=== PATIENT | female | born 1950 | race Native Hawaiian/Other Pacific Islander ===

== ENCOUNTER 2020-05-28 14:47 | Inpatient (IN) | payer BC ==
[~2020-05-28] VITALS: Ht 154.9 cm; Wt 64.5 kg
[2020-05-28 16:31] LABS: Basophils # (auto) 0 10 ^3/uL (0-0.2); Basophils % (auto) 0.4 % (0.0-2.0); Eosinophils # (auto) 0 10 ^3/uL (0-0.8); Eosinophils % (auto) 0.2 % (0.0-7.0); Hematocrit 36.4 % (36.0-46.0); Hemoglobin 12.7 g/dL (12.2-16.2); Lymphocytes # (auto) 0.7 10 ^3/uL (0.4-5.4); Lymphocytes % (auto) 10.3 % (10.0-50.0); Mean Corpuscular Hemoglobin 32.4 pg (28.0-32.0); Mean Corpuscular Hgb Conc. 34.8 g/dL (32.0-36.0); Mean Corpuscular Volume 93.1 fL (80.0-100.0); Monocytes # (auto) 0.3 10 ^3/uL (0-1.3); Monocytes % (auto) 4.9 % (0.0-12.0); Neutrophils # (auto) 5.7 10 ^3/uL (1.6-8.6); Neutrophils % (auto) 84.2 % (37.0-80.0); Nucleated Red Blood Cells % 0.1 %; Platelet Count (auto) 273 10^3/uL (140-450); Red Blood Cells 3.91 10^6/uL (4.0-5.20); Red Cell Distribution Width 11.9 % (11.8-14.3); White Blood Cell 6.8 10^3/uL (4.4-10.8)
[2020-05-28 16:46] LABS: Alanine Aminotransferase 34 U/L (13-56); Anion Gap 6 (5-15); Aspartate Aminotransferase 46 U/L (15-37); Blood Urea Nitrogen 21 mg/dL (7-18); Calcium 8.3 mg/dL (8.5-10.1); Carbon Dioxide 26 mmol/L (21-32); Chloride 103 mmol/L (98-107); Potassium 3.6 mmol/L (3.5-5.1); Sodium 135 mmol/L (136-145)
[2020-05-28 16:52] LABS: Alkaline Phosphatase 66 U/L (45-117); BUN/Creatinine Ratio 20.4; Bilirubin, Total 0.5 mg/dL (0.2-1.0); GFR African American 68 mL/min; GFR Non-African American 56 mL/min; Total Protein 7.6 g/dL (6.4-8.2)
[2020-05-28 17:26] LABS: Glucose 49 mg/dL (74-106)
[2020-05-28] MEDS ORDERED: DOXYCYCLINE 100 MG TAB/CAP PO ONE (17:45)
[2020-05-28] MEDS ORDERED: methylPREDNISolone SOD SUCC 125 MG/2 ML VL IM ONE (17:45)
[2020-05-28] MEDS ORDERED: cefTRIAXone SOD 1,000 MG VL IM ONE (17:45)
[2020-05-28] MEDS ORDERED: IPRATROPIUM BROM 0.5 MG/2.5ML INH SOL NEB ONE (18:00)
[2020-05-28] MEDS ORDERED: ALBUTEROL SULF 2.5 MG/0.5ML(0.5%) NEB SOLN NEB ONE (18:00)
[2020-05-28] MEDS ORDERED: LIDOCAINE 1% HCL (LOCAL ANESTH.) INJ 20ML MDV ONE (20:28)
[2020-05-28] MEDS ORDERED: ACETAMINOPHEN 325 MG TAB PO ONE (20:30)
[2020-05-28] MEDS ORDERED: SODIUM CHLORIDE 0.9% 1,000 ML IV ONE (20:30)
[2020-05-28] MEDS ORDERED: VANCOMYCIN PER PHARMACY 0 MG IV SCH (21:00)
[2020-05-28] MEDS ORDERED: ENOXAPARIN SOD 60 MG/0.6 ML SYRINGE SC ONE (21:00)
[2020-05-28] MEDS ORDERED: NITROGLYCERIN 0.4 MG SL TAB SL PRN (21:00)
[2020-05-28] MEDS ORDERED: HYDROcodone-ACET 5/325MG TAB PO PRN (21:00)
[2020-05-28] MEDS ORDERED: ALUM & MAG HYDROX-SIMETH LIQ(MAALOX) 30 ML PO PRN (21:00)
[2020-05-28] MEDS ORDERED: LORazepam 0.5 MG TAB PO PRN (21:00)
[2020-05-28] MEDS ORDERED: ONDANSETRON HCL 4 MG/2 ML VIAL IV PRN (21:00)
[2020-05-28] MEDS ORDERED: REMDESIVIR PER PHARMACY IV SCH (21:00)
[2020-05-28] MEDS ORDERED: PIPERACILLIN-TAZOB 3.375GM 100 ML IV ONE (21:00)
[2020-05-28] MEDS ORDERED: DOCUSATE SOD 100 MG CAP PO PRN (21:00)
[2020-05-28] MEDS ORDERED: ACETAMINOPHEN 500 MG TAB PO PRN (21:00)
[2020-05-28] MEDS ORDERED: ACETAMINOPHEN 325 MG TAB PO PRN (21:00)
[2020-05-28] MEDS ORDERED: MORPHINE SULF INJ 2 MG/ML SYRINGE 1ML IV PRN ×2 (21:00)
[2020-05-28 21:20] LABS: Magnesium 2.2 mg/dL (1.6-2.6)
[2020-05-28] MEDS: BUDESONIDE (INHALATION) 180 MCG IH IN SCH (22:00)
[2020-05-28] MEDS: ALBUTEROL SULF HFA 90MCG INH 200DOSE IN SCH (22:00)
[2020-05-28] MEDS: SODIUM CHLOR 0.9% PF (SALINE LOCK) 10ML VIAL/SYR IV SCH (22:39)
[2020-05-28] MEDS ORDERED: DEXTROSE (50%) 50ML SYRG IV ONE (22:45)
[2020-05-28] MEDS ORDERED: DEXTROSE (50%) 50ML SYRG IV PRN (22:45)
[2020-05-28 23:30] LABS: Basophils # (auto) 0 10 ^3/uL (0-0.2); Basophils % (auto) 0.2 % (0.0-2.0); Eosinophils # (auto) 0 10 ^3/uL (0-0.8); Eosinophils % (auto) 0.1 % (0.0-7.0); Hematocrit 34.5 % (36.0-46.0); Lymphocytes # (auto) 0.6 10 ^3/uL (0.4-5.4); Lymphocytes % (auto) 8.6 % (10.0-50.0); Mean Corpuscular Hemoglobin 32.4 pg (28.0-32.0); Mean Corpuscular Hgb Conc. 34.9 g/dL (32.0-36.0); Mean Corpuscular Volume 92.8 fL (80.0-100.0); Monocytes # (auto) 0.4 10 ^3/uL (0-1.3); Monocytes % (auto) 5.2 % (0.0-12.0); Neutrophils # (auto) 5.8 10 ^3/uL (1.6-8.6); Neutrophils % (auto) 85.9 % (37.0-80.0); Nucleated Red Blood Cells % 0.1 %; Platelet Count (auto) 259 10^3/uL (140-450); Red Blood Cells 3.72 10^6/uL (4.0-5.20); Red Cell Distribution Width 12.1 % (11.8-14.3); White Blood Cell 6.7 10^3/uL (4.4-10.8)
[2020-05-28 23:48] LABS: Albumin 2.8 g/dL (3.4-5.0); BUN/Creatinine Ratio 24.4; Calcium 8.3 mg/dL (8.5-10.1); Potassium 3.4 mmol/L (3.5-5.1)
[2020-05-28 23:58] LABS: Bilirubin, Total 0.6 mg/dL (0.2-1.0); CRP High Sensitivity 13.2 mg/dL (< 0.3)
[2020-05-29 00:05] LABS: Cholesterol 168 mg/dL (< 200)
[2020-05-29 00:09] LABS: HDL Cholesterol 34 mg/dL (40-59); LDL Cholesterol 115 mg/dL (< 100); Triglycerides 151 mg/dL (< 150)
[2020-05-29] MEDS: D5W/SOD CHLO 0.9% 1,000 ML IV SCH ×2 (01:34→13:18)
[2020-05-29 03:01] VITALS: BP 106/48
[2020-05-29] MEDS: VANCOMYCIN 1GM/250ML 250 ML IV SCH ×2 (03:44→21:03)
[2020-05-29] MEDS: ALBUTEROL SULF HFA 90MCG INH 200DOSE IN SCH (06:00)
[2020-05-29] MEDS: InsuLIN REG 1unit/0.01ml Soln (100units/ml) SC SCH ×4 (06:16→23:12)
[2020-05-29] MEDS: ACCU-CHEK COMFORT CURVE STRIP VI SCH ×4 (06:16→22:50)
[2020-05-29 06:24] LABS: Basophils # (auto) 0 10 ^3/uL (0-0.2); Basophils % (auto) 0.1 % (0.0-2.0); Eosinophils # (auto) 0 10 ^3/uL (0-0.8); Lymphocytes # (auto) 0.4 10 ^3/uL (0.4-5.4); Lymphocytes % (auto) 6.4 % (10.0-50.0); Mean Corpuscular Hemoglobin 31.8 pg (28.0-32.0); Mean Corpuscular Hgb Conc. 34.2 g/dL (32.0-36.0); Monocytes # (auto) 0.1 10 ^3/uL (0-1.3); Monocytes % (auto) 2.6 % (0.0-12.0); Neutrophils # (auto) 5.1 10 ^3/uL (1.6-8.6); Neutrophils % (auto) 90.9 % (37.0-80.0); Platelet Count (auto) 261 10^3/uL (140-450); Red Blood Cells 3.76 10^6/uL (4.0-5.20); White Blood Cell 5.6 10^3/uL (4.4-10.8)
[2020-05-29] MEDS: PIPERACILLIN-TAZOB 3.375GM 100 ML IV SCH ×3 (06:44→18:04)
[2020-05-29] MEDS: SODIUM CHLOR 0.9% PF (SALINE LOCK) 10ML VIAL/SYR IV SCH ×3 (06:44→21:03)
[2020-05-29 06:45] LABS: Calcium 7.8 mg/dL (8.5-10.1); Potassium 3.8 mmol/L (3.5-5.1)
[2020-05-29 06:48] LABS: Albumin 2.6 g/dL (3.4-5.0); BUN/Creatinine Ratio 27.2
[2020-05-29 07:02] LABS: Bilirubin, Total 0.5 mg/dL (0.2-1.0)
[2020-05-29] MEDS: BUDESONIDE (INHALATION) 180 MCG IH IN SCH ×2 (07:17→20:27)
[2020-05-29] MEDS ORDERED: hydrALAZINE HCL 20 MG/ML VL IV PRN (08:30)
[2020-05-29] MEDS: ENOXAPARIN SOD 60 MG/0.6 ML SYRINGE SC SCH ×2 (08:56→21:04)
[2020-05-29] MEDS: CHOLECALCIFEROL (VITD3) 2,000 UNIT CAP PO SCH (08:56)
[2020-05-29] MEDS: ASCORBIC ACID 1,000 MG TAB PO SCH (08:56)
[2020-05-29] MEDS: ZINC SULFATE 220mg CAP or TAB PO SCH (08:56)
[2020-05-29] MEDS: DexAMETHasone SOD PHOS 10MG/1ML VIAL INJ IV SCH (08:56)
[2020-05-29] MEDS ORDERED: IOHEXOL 350 MG/ML 100ML IJ ONE (11:43)
[2020-05-29] MEDS: ALBUTEROL SULF HFA 90MCG INH 200DOSE IN PRN (20:27)
[2020-05-29 22:14] LABS: Urine Bacteria FEW /hpf (None Seen); Urine Blood Negative /uL (Negative); Urine WBC 2 /hpf (0 - 5)
[2020-05-29 22:16] LABS: Urine Specific Gravity > 1.050 (1.001-1.035)
[2020-05-29 22:59] VITALS: BP 143/74
--- NOTE | 2020-05-29 23:00 | NUR ---
Telemetry admit from ER Patient admitted to Telemetry unit. Patient oriented to primary RN, unit, room, bed, and unit policies regarding patient care and visiting hours. Patient now on continuous telemetry monitoring, tele box # 16 and telemetry reading on arrival to unit sinus rhythm. Patient placed on bedside oxygen simple mask 6 L, weighed by bedscale and encouraged to call if they need something. All questions and concerns addressed, patient verbalized understanding. Safety precautions in place bed is in lowest position and locked, bed rails 2x
[2020-05-29 23:32] LABS: Alcohol, Urine < 3.0 mg/dL (0-10); Amphetamine Screen, Urine NEGATIVE (NEGATIVE); Barbiturate Scree,Urine NEGATIVE (NEGATIVE); Benzodiazephine Screen, Urine NEGATIVE (NEGATIVE); Cannabinoid Screen, Urine NEGATIVE (NEGATIVE); Cocaine Screen, Urine NEGATIVE (NEGATIVE); Opiate Scree,Urine NEGATIVE (NEGATIVE); Phencyclidine Screen, Urine NEGATIVE (NEGATIVE)
[2020-05-30] MEDS: PIPERACILLIN-TAZOB 3.375GM 100 ML IV SCH ×4 (00:20→18:22)
[2020-05-30] MEDS: D5W/SOD CHLO 0.9% 1,000 ML IV SCH (01:26)
[2020-05-30] MEDS ORDERED: AMLO5TAB15 PO (03:43)
[2020-05-30 05:00] VITALS: BP 128/63
[2020-05-30] MEDS: SODIUM CHLOR 0.9% PF (SALINE LOCK) 10ML VIAL/SYR IV SCH ×3 (05:40→22:00)
[2020-05-30] MEDS ORDERED: LOSA-39 PO (06:17)
[2020-05-30] MEDS ORDERED: GLIM2TAB33 PO (06:19)
[2020-05-30] MEDS ORDERED: FENO134C PO (06:19)
[2020-05-30] MEDS: ACCU-CHEK COMFORT CURVE STRIP VI SCH ×4 (06:52→22:00)
[2020-05-30] MEDS: InsuLIN REG 1unit/0.01ml Soln (100units/ml) SC SCH ×4 (06:54→22:37)
--- NOTE | 2020-05-30 07:30 | NUR ---
OPENING SHIFT NOTE ASSUMED CARE OF PATIENT FROM GROCERY CHECKER RN. PATIENT IS AWAKE, ALERT, AND ORIENTED X4. PATIENT HAS NO S/S OF DISTRESS/SOB OR PAIN AT THIS TIME. INSTRUCTED PATIENT ON POC, PATIENT VERBALIZED UNDERSTANDING. BED IS IN LOWEST POSITION WITH SIDE RAILS RAISED X2, BED WHEELS LOCKED, AND CALL LIGHT IS WITHIN REACH. WILL CONTINUE TO MONITOR.
[2020-05-30 08:00] LABS: Basophils # (auto) 0 10 ^3/uL (0-0.2); Basophils % (auto) 0.2 % (0.0-2.0); Eosinophils # (auto) 0 10 ^3/uL (0-0.8); Hematocrit 33.5 % (36.0-46.0); Hemoglobin 11.3 g/dL (12.2-16.2); Lymphocytes # (auto) 0.6 10 ^3/uL (0.4-5.4); Mean Corpuscular Hemoglobin 31.3 pg (28.0-32.0); Mean Corpuscular Hgb Conc. 33.6 g/dL (32.0-36.0); Monocytes # (auto) 0.5 10 ^3/uL (0-1.3); Monocytes % (auto) 6.6 % (0.0-12.0); Neutrophils # (auto) 6.8 10 ^3/uL (1.6-8.6); Neutrophils % (auto) 85.2 % (37.0-80.0); Platelet Count (auto) 324 10^3/uL (140-450); Red Cell Distribution Width 12.2 % (11.8-14.3)
[2020-05-30 08:28] LABS: Calcium 8.5 mg/dL (8.5-10.1); Potassium 3.7 mmol/L (3.5-5.1)
[2020-05-30 08:30] VITALS: BP 121/75
[2020-05-30] MEDS: ALBUTEROL SULF HFA 90MCG INH 200DOSE IN PRN (08:37)
[2020-05-30] MEDS: BUDESONIDE (INHALATION) 180 MCG IH IN SCH ×2 (08:37→23:44)
[2020-05-30 08:38] LABS: BUN/Creatinine Ratio 31.4
[2020-05-30 08:43] LABS: CRP High Sensitivity 5.58 mg/dL (< 0.3)
[2020-05-30] MEDS: ZINC SULFATE 220mg CAP or TAB PO SCH (11:06)
[2020-05-30] MEDS: CHOLECALCIFEROL (VITD3) 2,000 UNIT CAP PO SCH (11:07)
[2020-05-30] MEDS: ASCORBIC ACID 1,000 MG TAB PO SCH (11:08)
[2020-05-30] MEDS: DexAMETHasone SOD PHOS 10MG/1ML VIAL INJ IV SCH (11:08)
[2020-05-30] MEDS: ENOXAPARIN SOD 60 MG/0.6 ML SYRINGE SC SCH ×2 (11:10→22:37)
[2020-05-30] MEDS ORDERED: REMDESIVIR PER PHARMACY IV SCH (11:45)
[2020-05-30 13:37] VITALS: BP 129/56
--- NOTE | 2020-05-30 14:42 | NUR ---
1430 05/30/20 - Faxed to [facility] at [phone] face sheet, order for home health evaluation, H/P. Pending review and accepting patient for services.
--- NOTE | 2020-05-30 14:44 | NUR ---
1435 05/30/20 - Faxed to [facility] at [phone] face sheet, order for home oxygen 4L NC continuous, H/P. Pending review and delivery of oxygen to patient at bedside.
[2020-05-30] MEDS ORDERED: REMDESIVIR 200 MG in NS 210ml LOADING DOSE ADULT IV ONE (17:00)
--- NOTE | 2020-05-30 17:20 | NUR ---
REMDESIVIR VITALS 1720 BP133/80 HR 70 BPM 1746 BP 145/62 HR 77 BPM 1820 BP 149/83 HR 95 BPM WILL CONTINUE TO MONITOR.
[2020-05-30] MEDS: VANCOMYCIN 1GM/250ML 250 ML IV SCH (17:21)
--- NOTE | 2020-05-30 18:00 | NUR ---
9760 05/30/20 - Contacted by [facility] quality compliance coordinator who stated they are not accepting COVID positive patient for service at this time. Faxed to [facility] at [phone] face sheet, order for home health [facility], H/P. Pending review and accepting patient for services.
--- NOTE | 2020-05-30 19:26 | NUR ---
CLOSING SHIFT NOTE ENDORSED CARE TO APPLIANCE ADJUSTER RN YADIRA. PATIENT HAS NO S/S OF DISTRESS/SOB OR PAIN AT THIS TIME.
[2020-05-30 22:00] VITALS: BP 129/63
[2020-05-30] MEDS: ALBUTEROL SULF HFA 90MCG INH 200DOSE IN SCH (23:44)
[2020-05-31] MEDS: PIPERACILLIN-TAZOB 3.375GM 100 ML IV SCH ×4 (00:41→19:07)
--- NOTE | 2020-05-31 04:18 | NUR ---
Tritiated O2 from 6LPM to 7LPM via simple mask due to O2 saturation 89% while at rest. Pt denies SOB while at rest. No labored breathing
[2020-05-31 05:00] VITALS: BP 123/70
[2020-05-31] MEDS: SODIUM CHLOR 0.9% PF (SALINE LOCK) 10ML VIAL/SYR IV SCH ×3 (06:00→22:00)
[2020-05-31] MEDS: ALBUTEROL SULF HFA 90MCG INH 200DOSE IN SCH ×2 (06:00→20:37)
[2020-05-31] MEDS: InsuLIN REG 1unit/0.01ml Soln (100units/ml) SC SCH ×4 (06:22→22:42)
--- NOTE | 2020-05-31 07:10 | NUR ---
OPENING SHIFT NOTE ASSUMED CARE OF PATIENT FROM PRICING INTERN RN YADIRA. PATIENT IS AWAKE, ALERT, AND ORIENTED X4. PATIENT HAS NO S/S OF DISTRESS/SOB OR PAIN AT THIS TIME. INSTRUCTED PATIENT ON POC, PATIENT VERBALIZED UNDERSTANDING. BED IS IN LOWEST POSITION WITH SIDE RAILS RAISED X2, BED WHEELS LOCKED, AND CALL LIGHT IS WITHIN REACH. WILL CONTINUE TO MONITOR.
[2020-05-31] MEDS: ACCU-CHEK COMFORT CURVE STRIP VI SCH ×4 (07:15→22:00)
[2020-05-31 07:40] LABS: Basophils # (auto) 0 10 ^3/uL (0-0.2); Basophils % (auto) 0.2 % (0.0-2.0); Eosinophils # (auto) 0 10 ^3/uL (0-0.8); Eosinophils % (auto) 0.1 % (0.0-7.0); Hematocrit 37.6 % (36.0-46.0); Hemoglobin 12.9 g/dL (12.2-16.2); Lymphocytes # (auto) 0.9 10 ^3/uL (0.4-5.4); Lymphocytes % (auto) 12.6 % (10.0-50.0); Mean Corpuscular Hemoglobin 32.6 pg (28.0-32.0); Mean Corpuscular Hgb Conc. 34.2 g/dL (32.0-36.0); Mean Corpuscular Volume 95.5 fL (80.0-100.0); Monocytes # (auto) 0.4 10 ^3/uL (0-1.3); Monocytes % (auto) 4.8 % (0.0-12.0); Neutrophils # (auto) 6.2 10 ^3/uL (1.6-8.6); Neutrophils % (auto) 82.3 % (37.0-80.0); Platelet Count (auto) 345 10^3/uL (140-450); Red Blood Cells 3.94 10^6/uL (4.0-5.20); Red Cell Distribution Width 12.3 % (11.8-14.3); White Blood Cell 7.5 10^3/uL (4.4-10.8)
[2020-05-31 08:00] VITALS: BP 126/33
[2020-05-31 08:03] LABS: Potassium 3.4 mmol/L (3.5-5.1)
[2020-05-31 08:13] LABS: BUN/Creatinine Ratio 27.5; Calcium 8.5 mg/dL (8.5-10.1)
[2020-05-31 08:34] VITALS: BP 126/53
[2020-05-31 08:52] LABS: CRP High Sensitivity 10.4 mg/dL (< 0.3)
[2020-05-31] MEDS: ENOXAPARIN SOD 60 MG/0.6 ML SYRINGE SC SCH ×2 (09:23→22:39)
[2020-05-31] MEDS: CHOLECALCIFEROL (VITD3) 2,000 UNIT CAP PO SCH (09:23)
[2020-05-31] MEDS: ZINC SULFATE 220mg CAP or TAB PO SCH (09:23)
[2020-05-31] MEDS: ASCORBIC ACID 1,000 MG TAB PO SCH (09:23)
[2020-05-31] MEDS: DexAMETHasone SOD PHOS 10MG/1ML VIAL INJ IV SCH (09:23)
[2020-05-31] MEDS: BUDESONIDE (INHALATION) 180 MCG IH IN SCH ×2 (10:00→20:37)
[2020-05-31 12:24] VITALS: BP 129/66
--- NOTE | 2020-05-31 13:12 | NUR ---
CALLED LAB FOR SHELBY GO
--- NOTE | 2020-05-31 13:13 | NUR ---
SPOKE WITH [employer] ANNA AND INFORMED HER VANCO TROUGH HAS BEEN DONE. SHE WILL PAGE [employer].
--- NOTE | 2020-05-31 13:29 | NUR ---
SPOKE WITH ANNA (LICENSED MARRIAGE AND FAMILY THERAPIST) AND SHE SAID THE DRAFTING LAYOUT MAN WONT BE ABLE TO DRAW VANCO TROUGH RIGHT NOW, INFORMED PHARMACIST. PHARMACIST IS AWARE AND THEY WILL RESCHEDULE VANCOMYCIN ONCE VANCO TROUGH HAS BEEN DRAWN.
[2020-05-31] MEDS: VANCOMYCIN 1GM/250ML 250 ML IV SCH (16:37)
[2020-05-31 16:54] VITALS: BP 129/65
[2020-05-31] MEDS: REMDESIVIR 100 MG in SODIUM CHL 0.9% 250 ML IV SCH (17:40)
--- NOTE | 2020-05-31 17:40 | NUR ---
PRE REMDESIVIR VITALS 139/79 mmHg HEART RATE 77 BPM.
--- NOTE | 2020-05-31 17:55 | NUR ---
15 MINUTE REMDESIVIR VITALS 132/64 mmHg HEART RATE IS 67 BPM.
--- NOTE | 2020-05-31 19:08 | NUR ---
CLOSING SHIFT NOTE ENDORSED CARE TO UNDERPRESSER HAND RN YADIRA. PATIENT HAS NO S/S OF DISTRESS/SOB OR PAIN AT THIS TIME.
--- NOTE | 2020-05-31 19:46 | NUR ---
Post 15min remdesivir vitals BP 137/50 P65 92% 15L Oxymizer T-98.6
--- NOTE | 2020-05-31 20:49 | NUR ---
O2 Saturation Received pt she was on 15L Oxymizer. Stated that respiratory had changed her to Oxymizer in AM after I had left. Assisted pt to restroom, reported slight SOB but verbalized "not as bad as before". Titrated pt to 10L Oxymizer, O2 saturation maintaining 90%+, rechecked after 15mins. Educated pt regarding self proning and laying on sides.
[2020-05-31 22:00] VITALS: BP 138/49
[2020-06-01] MEDS: PIPERACILLIN-TAZOB 3.375GM 100 ML IV SCH ×4 (00:19→17:01)
[2020-06-01] MEDS: VANCOMYCIN 1GM/250ML 250 ML IV SCH ×2 (04:11→16:07)
[2020-06-01 05:00] VITALS: BP 136/52
[2020-06-01] MEDS: SODIUM CHLOR 0.9% PF (SALINE LOCK) 10ML VIAL/SYR IV SCH ×3 (05:10→22:00)
[2020-06-01] MEDS: ACCU-CHEK COMFORT CURVE STRIP VI SCH ×4 (06:02→22:00)
[2020-06-01] MEDS: InsuLIN REG 1unit/0.01ml Soln (100units/ml) SC SCH ×4 (06:02→22:54)
--- NOTE | 2020-06-01 07:05 | NUR ---
OPENING SHIFT NOTE ASSUMED CARE OF PATIENT FROM BIOMEDICAL ENGINEER RN YADIRA. PATIENT IS AWAKE, ALERT, AND ORIENTED X4. PATIENT HAS NO S/S OF DISTRESS/SOB OR PAIN AT THIS TIME. INSTRUCTED PATIENT ON POC, PATIENT VERBALIZED UNDERSTANDING. BED IS IN LOWEST POSITION WITH SIDE RAILS RAISED X2, BED WHEELS LOCKED, AND CALL LIGHT IS WITHIN REACH. WILL CONTINUE TO MONITOR.
[2020-06-01 07:13] LABS: Basophils # (auto) 0 10 ^3/uL (0-0.2); Basophils % (auto) 0.2 % (0.0-2.0); Eosinophils # (auto) 0 10 ^3/uL (0-0.8); Eosinophils % (auto) 0.2 % (0.0-7.0); Hematocrit 34.5 % (36.0-46.0); Hemoglobin 11.9 g/dL (12.2-16.2); Lymphocytes # (auto) 0.8 10 ^3/uL (0.4-5.4); Mean Corpuscular Hemoglobin 32.1 pg (28.0-32.0); Mean Corpuscular Hgb Conc. 34.4 g/dL (32.0-36.0); Mean Corpuscular Volume 93.4 fL (80.0-100.0); Monocytes # (auto) 0.4 10 ^3/uL (0-1.3); Monocytes % (auto) 5.5 % (0.0-12.0); Neutrophils # (auto) 6.1 10 ^3/uL (1.6-8.6); Neutrophils % (auto) 83.1 % (37.0-80.0); Nucleated Red Blood Cells % 0.1 %; Platelet Count (auto) 367 10^3/uL (140-450); Red Cell Distribution Width 12.1 % (11.8-14.3); White Blood Cell 7.3 10^3/uL (4.4-10.8)
--- NOTE | 2020-06-01 07:20 | NUR ---
Completed EKG for pt. Given to DELVIN Jang
[2020-06-01 07:25] LABS: Albumin 2.2 g/dL (3.4-5.0); Calcium 8.1 mg/dL (8.5-10.1); Potassium 3.2 mmol/L (3.5-5.1)
[2020-06-01 07:30] VITALS: BP 116/59
[2020-06-01 07:37] LABS: BUN/Creatinine Ratio 19.2; Bilirubin, Total 0.5 mg/dL (0.2-1.0); CRP High Sensitivity 10.7 mg/dL (< 0.3); Total Protein 6.5 g/dL (6.4-8.2)
[2020-06-01 08:59] VITALS: BP 116/59
[2020-06-01] MEDS: BUDESONIDE (INHALATION) 180 MCG IH IN SCH ×2 (09:05→22:45)
[2020-06-01] MEDS: ZINC SULFATE 220mg CAP or TAB PO SCH (10:17)
[2020-06-01] MEDS: ASCORBIC ACID 1,000 MG TAB PO SCH (10:17)
[2020-06-01] MEDS: ENOXAPARIN SOD 60 MG/0.6 ML SYRINGE SC SCH ×2 (10:17→22:58)
[2020-06-01] MEDS: DexAMETHasone SOD PHOS 10MG/1ML VIAL INJ IV SCH (10:18)
[2020-06-01] MEDS: CHOLECALCIFEROL (VITD3) 2,000 UNIT CAP PO SCH (10:18)
[2020-06-01] MEDS ORDERED: diphenhdrAMINE HCL 50 MG/1 ML VL IV PRN (11:30)
[2020-06-01 13:00] VITALS: BP 131/76
--- NOTE | 2020-06-01 15:09 | NUR ---
Nutrition Assessment Note please see attached link for complete assessment. Est energy needs BW 67 [id number] kcal (23-25 kcal/kg BW), Est protein needs 67-87g (1-1.3g/kg BW r/t severe hypoalb). Will monitor and reassess prn. Addendum: 06/01/20 at [address] Amended: Links added.
[2020-06-01] MEDS: REMDESIVIR 100 MG in SODIUM CHL 0.9% 250 ML IV SCH (16:58)
--- NOTE | 2020-06-01 16:58 | NUR ---
PRE REMDESIVIR VITALS BP 144/62 mmHg AND HEART RATE IS 66 BPM.
[2020-06-01 17:00] VITALS: BP 144/62
--- NOTE | 2020-06-01 17:15 | NUR ---
15 MINUTE REMDESIVIR VITALS BP 157/80 mmHg AND HEART RATE 72 BPM
--- NOTE | 2020-06-01 18:56 | NUR ---
CLOSING SHIFT NOTE PATIENT HAS NO S/S OF DISTRESS/SOB OR PAIN AT THIS TIME. WILL ENDORSE CARE TO EMISSIONS INSPECTOR RN.
--- NOTE | 2020-06-01 20:00 | NUR ---
Pt refused to eat dinner. Consumed only 25% of meal. Offered pt snacks, pt refused.
--- NOTE | 2020-06-01 20:15 | NUR ---
K 3.2 Notified call center team leader for [facility]- Dr. Norma Rdz, telephone orders for potassium supplement. 40meq KCL PO One time. Verbalized and read back
--- NOTE | 2020-06-01 20:31 | NUR ---
Post 15min remdesivir vitals BP 148/63 Pulse 65
[2020-06-01 22:00] VITALS: BP 104/66
[2020-06-01] MEDS ORDERED: POTASSIUM CHL 20 Meq TABLET PO ONE (22:00)
--- NOTE | 2020-06-01 22:00 | NUR ---
Inserted 18g IV 1st attempt into Right forearm Pt tolerated well. Removed RAC IV. Pressure dressing applied.
[2020-06-01] MEDS: ALBUTEROL SULF HFA 90MCG INH 200DOSE IN PRN (22:45)
[2020-06-01] MEDS: FAMOTIDINE (10MG/ML) 2ML VL IV SCH (22:56)
[2020-06-02] MEDS: PIPERACILLIN-TAZOB 3.375GM 100 ML IV SCH ×5 (00:10→23:54)
[2020-06-02 03:49] LABS: Basophils # (auto) 0 10 ^3/uL (0-0.2); Basophils % (auto) 0.1 % (0.0-2.0); Eosinophils # (auto) 0 10 ^3/uL (0-0.8); Eosinophils % (auto) 0.1 % (0.0-7.0); Hematocrit 33.4 % (36.0-46.0); Hemoglobin 11.6 g/dL (12.2-16.2); Lymphocytes # (auto) 0.6 10 ^3/uL (0.4-5.4); Lymphocytes % (auto) 7.1 % (10.0-50.0); Mean Corpuscular Hemoglobin 32.1 pg (28.0-32.0); Mean Corpuscular Hgb Conc. 34.7 g/dL (32.0-36.0); Mean Corpuscular Volume 92.6 fL (80.0-100.0); Monocytes # (auto) 0.4 10 ^3/uL (0-1.3); Monocytes % (auto) 4.3 % (0.0-12.0); Neutrophils # (auto) 7.2 10 ^3/uL (1.6-8.6); Neutrophils % (auto) 88.4 % (37.0-80.0); Platelet Count (auto) 384 10^3/uL (140-450); Red Blood Cells 3.61 10^6/uL (4.0-5.20); Red Cell Distribution Width 12.2 % (11.8-14.3); White Blood Cell 8.1 10^3/uL (4.4-10.8)
--- NOTE | 2020-06-02 04:00 | NUR ---
Placed 22g IV in left Hand after 2 attempts. Pt verbalized "you can try one more time". Pt tolerated well.
[2020-06-02 04:20] LABS: Calcium 8.2 mg/dL (8.5-10.1); Potassium 3.3 mmol/L (3.5-5.1)
[2020-06-02] MEDS: VANCOMYCIN 1GM/250ML 250 ML IV SCH ×3 (04:21→23:54)
[2020-06-02 04:29] LABS: BUN/Creatinine Ratio 26.1; CRP High Sensitivity 8.63 mg/dL (< 0.3)
[2020-06-02 05:00] VITALS: BP 125/62
[2020-06-02] MEDS: SODIUM CHLOR 0.9% PF (SALINE LOCK) 10ML VIAL/SYR IV SCH ×3 (05:55→21:48)
[2020-06-02] MEDS: InsuLIN REG 1unit/0.01ml Soln (100units/ml) SC SCH ×4 (06:21→22:09)
[2020-06-02] MEDS: ACCU-CHEK COMFORT CURVE STRIP VI SCH ×4 (06:25→21:49)
--- NOTE | 2020-06-02 07:25 | NUR ---
OPENING SHIFT NOTE ASSUMED CARE OF PATIENT FROM PARK WORKER SUPERVISOR RN YADIRA. PATIENT IS AWAKE, ALERT, AND ORIENTED X4. PATIENT HAS NO S/S OF DISTRESS/SOB OR PAIN AT THIS TIME. INSTRUCTED PATIENT ON POC, PATIENT VERBALIZED UNDERSTANDING. BED IS IN LOWEST POSITION WITH SIDE RAILS RAISED X2, BED WHEELS LOCKED, AND CALL LIGHT IS WITHIN REACH. WILL CONTINUE TO MONITOR.
[2020-06-02 07:30] VITALS: BP 115/63
[2020-06-02] MEDS: BUDESONIDE (INHALATION) 180 MCG IH IN SCH ×2 (07:38→22:20)
[2020-06-02 09:10] VITALS: BP 115/63
[2020-06-02] MEDS: FAMOTIDINE (10MG/ML) 2ML VL IV SCH ×2 (10:15→21:48)
[2020-06-02] MEDS: ZINC SULFATE 220mg CAP or TAB PO SCH (10:15)
[2020-06-02] MEDS: ASCORBIC ACID 1,000 MG TAB PO SCH (10:15)
[2020-06-02] MEDS: DexAMETHasone SOD PHOS 10MG/1ML VIAL INJ IV SCH (10:16)
[2020-06-02] MEDS: ENOXAPARIN SOD 60 MG/0.6 ML SYRINGE SC SCH ×2 (10:16→21:49)
[2020-06-02] MEDS: CHOLECALCIFEROL (VITD3) 2,000 UNIT CAP PO SCH (10:16)
[2020-06-02] MEDS ORDERED: POTASSIUM CHL 20 Meq TABLET PO ONE (10:45)
--- NOTE | 2020-06-02 12:06 | NUR ---
INFORMED PHARMACY THERE IS NO ZOSYN STOCKED. PER PHARMACY THEY WILL RESTOCK WHEN THEY CAN.
--- NOTE | 2020-06-02 12:48 | NUR ---
RECEIVED CALL FROM DR. SOSA AND INFORMED HIM OF CRITICAL ABG. MD WANTS PATIENT TO BE UPGRADED TO [place] AND INFORM DR. CARRILLO. PAGED DR. CARRILLO AWAITING CALL BACK.
--- NOTE | 2020-06-02 12:52 | NUR ---
MD SOSA WANTS PATIENT ON HIGH FLOW INFORMED RT.
--- NOTE | 2020-06-02 12:55 | NUR ---
SPOKE WITH DIRECTOR DEB FROM RESPIRATORY AND PER DEB PATIENT'S ROOM CANNOT ACCESS HIGH FLOW AND WE DO NOT HAVE ANY BEDS AVAILABLE IN [place]. PAGED MD SOSA. AWAITING CALL BACK.
[2020-06-02 13:00] VITALS: BP 131/67
--- NOTE | 2020-06-02 13:20 | NUR ---
SPOKE WITH RESPIRATORY THERAPIST AND INFORMED HIM PATIENT'S SPO2 IS 95% ON 10 L OXYMIZER AND INFORMED HIM OF DOCTORS ORDER. RT IS AWARE AND WILL PLACE PATIENT ON A NONREBREATHER.
[2020-06-02 17:00] VITALS: BP 144/67
[2020-06-02] MEDS: REMDESIVIR 100 MG in SODIUM CHL 0.9% 250 ML IV SCH (18:19)
--- NOTE | 2020-06-02 18:19 | NUR ---
PRE REMDESIVIR VITALS BP 144/56 mmHg AND HEART RATE 62 BPM.
--- NOTE | 2020-06-02 18:34 | NUR ---
15 MINUTE REMDESIVIR VITALS BP 157/60 mmHg AND HEART RATE IS 60 BPM.
--- NOTE | 2020-06-02 18:59 | NUR ---
CLOSING SHIFT NOTE PATIENT HAS NO S/S OF DISTRESS/SOB OR PAIN AT THIS TIME. WILL ENDORSE CARE TO COMMERCIAL TRAILER TRUCK DRIVER RN.
[2020-06-02 22:00] VITALS: BP 134/62
[2020-06-02] MEDS: ALBUTEROL SULF HFA 90MCG INH 200DOSE IN PRN (22:21)
[2020-06-03] VITALS (8 sets, daily range): BP systolic 121–166; BP diastolic 51–78
--- NOTE | 2020-06-03 03:53 | NUR ---
Convalescent plasma started at this time.
--- NOTE | 2020-06-03 03:54 | NUR ---
Patient satting at 88% on 12L oxymizer. I asked patient to take some deep breaths and oxygen only adenike to 89%. Oxygen was titrated up to 14L oxymizer. She is now satting at 93%. Will continue to monitor.
[2020-06-03] MEDS: ACCU-CHEK COMFORT CURVE STRIP VI SCH ×4 (06:30→22:30)
[2020-06-03] MEDS: SODIUM CHLOR 0.9% PF (SALINE LOCK) 10ML VIAL/SYR IV SCH ×3 (06:42→22:30)
[2020-06-03] MEDS: InsuLIN REG 1unit/0.01ml Soln (100units/ml) SC SCH ×4 (06:42→22:08)
[2020-06-03] MEDS: PIPERACILLIN-TAZOB 3.375GM 100 ML IV SCH ×4 (06:43→23:59)
--- NOTE | 2020-06-03 08:00 | NUR ---
Opening Shift Note Assumed care of patient, awake and alert. No S/S of distress/SOB or pain. Instructed on POC and to call for assist PRN, will continue to monitor for changes Q1hr and PRN. Patient on 12l Oxymizer.
[2020-06-03 08:25] LABS: Basophils # (auto) 0 10 ^3/uL (0-0.2); Basophils % (auto) 0.1 % (0.0-2.0); Eosinophils # (auto) 0.1 10 ^3/uL (0-0.8); Lymphocytes # (auto) 1.1 10 ^3/uL (0.4-5.4); Monocytes # (auto) 0.5 10 ^3/uL (0-1.3)
[2020-06-03 08:27] LABS: Eosinophils % (auto) 0.9 % (0.0-7.0); Hematocrit 39.2 % (36.0-46.0); Hemoglobin 13.6 g/dL (12.2-16.2); Lymphocytes % (auto) 10.7 % (10.0-50.0); Mean Corpuscular Hemoglobin 32.4 pg (28.0-32.0); Mean Corpuscular Hgb Conc. 34.6 g/dL (32.0-36.0); Mean Corpuscular Volume 93.6 fL (80.0-100.0); Monocytes % (auto) 4.6 % (0.0-12.0); Neutrophils % (auto) 83.7 % (37.0-80.0); Red Blood Cells 4.19 10^6/uL (4.0-5.20); Red Cell Distribution Width 12.1 % (11.8-14.3); White Blood Cell 10.7 10^3/uL (4.4-10.8)
[2020-06-03 08:42] LABS: Calcium 8.8 mg/dL (8.5-10.1); Potassium 3.2 mmol/L (3.5-5.1)
[2020-06-03] MEDS: ALBUTEROL SULF HFA 90MCG INH 200DOSE IN PRN ×2 (08:47→23:41)
[2020-06-03] MEDS: BUDESONIDE (INHALATION) 180 MCG IH IN SCH ×2 (08:47→23:41)
[2020-06-03 09:01] LABS: BUN/Creatinine Ratio 18.2; CRP High Sensitivity 7.8 mg/dL (< 0.3)
[2020-06-03 09:02] LABS: Platelet Count (auto) 530 10^3/uL (140-450)
[2020-06-03] MEDS: VANCOMYCIN 1GM/250ML 250 ML IV SCH ×2 (09:58→20:22)
[2020-06-03] MEDS: DexAMETHasone SOD PHOS 10MG/1ML VIAL INJ IV SCH (09:58)
[2020-06-03] MEDS: FAMOTIDINE (10MG/ML) 2ML VL IV SCH ×2 (09:59→22:30)
[2020-06-03] MEDS: ENOXAPARIN SOD 60 MG/0.6 ML SYRINGE SC SCH ×2 (09:59→22:30)
[2020-06-03] MEDS: ASCORBIC ACID 1,000 MG TAB PO SCH (09:59)
[2020-06-03] MEDS: ZINC SULFATE 220mg CAP or TAB PO SCH (09:59)
[2020-06-03] MEDS: CHOLECALCIFEROL (VITD3) 2,000 UNIT CAP PO SCH (09:59)
--- NOTE | 2020-06-03 10:46 | NUR ---
1000 06/03/20 - Faxed face sheet and order for home health safety evaluation to [facility] at [phone], [facility] at [phone], Received call back from both home health agencies who declined to accept patient due agencies not accepting COVID patients at this time. Faxed face sheet and order for home health safety evaluation to [facility] at [phone] and [facility] at [phone] pending review and accepting for service.
[2020-06-03] MEDS: REMDESIVIR 100 MG in SODIUM CHL 0.9% 250 ML IV SCH (16:03)
--- NOTE | 2020-06-03 16:30 | NUR ---
Remdesivir Pre-Infusion BP:129/58 HR:62 15 min post-infusion BP:138/61 HR:60
--- NOTE | 2020-06-03 17:10 | NUR ---
Remdesivir Post-transfusion BP:131/81 HR:64 Addendum: 06/03/20 at 1819 by AUGUSTUS DELEON RN RN CORRECTION BP:144/60 HR:73
--- NOTE | 2020-06-03 18:00 | NUR ---
PHYSICIAN MOQATTASH A BEDSIDE, AWARE OF PATIENT STATUS INCLUDING LOW POTASSIUM. PER MD GIVE 40MEQ PO NOW AND ANOTHER 40MEQ PO IN TWO HOURS. ORDERS READ BACK AND VERIFIED. WILL CARRY OUT NEW ORDERS AND CONT TO MONITOR PATIENT.
[2020-06-03] MEDS ORDERED: POTASSIUM CHL 20 Meq TABLET PO ONE ×2 (18:30→20:30)
[2020-06-04] MEDS: VANCOMYCIN 1GM/250ML 250 ML IV SCH ×2 (06:13→16:00)
[2020-06-04] MEDS: SODIUM CHLOR 0.9% PF (SALINE LOCK) 10ML VIAL/SYR IV SCH ×3 (06:14→22:00)
[2020-06-04] MEDS: PIPERACILLIN-TAZOB 3.375GM 100 ML IV SCH ×4 (06:14→18:00)
[2020-06-04] MEDS: ACCU-CHEK COMFORT CURVE STRIP VI SCH ×4 (06:24→22:00)
[2020-06-04] MEDS: InsuLIN REG 1unit/0.01ml Soln (100units/ml) SC SCH ×4 (06:24→22:00)
--- NOTE | 2020-06-04 07:30 | NUR ---
ROUNDS PT SITTING UP IN BED AWAKE A&O. REQUESTING TO AMBULATE TO THE RESTROOM. AMBULATED TO RESTROOM INDEPENDENTLY WITH STEADY GATE. PT ON 8L OXYMIZER SATURATIONS AT 93%. NO C/O PAIN, NO REQUESTS. WILL CONTINUE TO MONITOR
[2020-06-04 07:53] LABS: Basophils # (auto) 0 10 ^3/uL (0-0.2); Basophils % (auto) 0.3 % (0.0-2.0); Calcium 8.2 mg/dL (8.5-10.1); Eosinophils # (auto) 0.2 10 ^3/uL (0-0.8); Eosinophils % (auto) 2.7 % (0.0-7.0); Hematocrit 33.4 % (36.0-46.0); Hemoglobin 11.5 g/dL (12.2-16.2); Lymphocytes # (auto) 0.6 10 ^3/uL (0.4-5.4); Lymphocytes % (auto) 7.8 % (10.0-50.0); Mean Corpuscular Hemoglobin 32.2 pg (28.0-32.0); Mean Corpuscular Hgb Conc. 34.4 g/dL (32.0-36.0); Mean Corpuscular Volume 93.7 fL (80.0-100.0); Monocytes # (auto) 0.4 10 ^3/uL (0-1.3); Monocytes % (auto) 4.8 % (0.0-12.0); Neutrophils % (auto) 84.4 % (37.0-80.0); Platelet Count (auto) 403 10^3/uL (140-450); Potassium 3.5 mmol/L (3.5-5.1); Red Blood Cells 3.57 10^6/uL (4.0-5.20); Red Cell Distribution Width 12.1 % (11.8-14.3); White Blood Cell 8.3 10^3/uL (4.4-10.8)
[2020-06-04 08:00] LABS: CRP High Sensitivity 7.05 mg/dL (< 0.3)
[2020-06-04] MEDS: BUDESONIDE (INHALATION) 180 MCG IH IN SCH ×2 (10:00→21:47)
[2020-06-04] MEDS: DexAMETHasone SOD PHOS 10MG/1ML VIAL INJ IV SCH (10:00)
[2020-06-04] MEDS: ZINC SULFATE 220mg CAP or TAB PO SCH (11:21)
[2020-06-04] MEDS: ASCORBIC ACID 1,000 MG TAB PO SCH (11:21)
[2020-06-04] MEDS: ENOXAPARIN SOD 60 MG/0.6 ML SYRINGE SC SCH ×2 (11:22→22:00)
[2020-06-04] MEDS: FAMOTIDINE (10MG/ML) 2ML VL IV SCH ×2 (11:22→22:00)
--- NOTE | 2020-06-04 12:00 | NUR ---
STATUS PT REMAINS STABLE AND CONDITION UNCHANGED. PT AMBULATED TO RESTROOM REGULARLY WITH STEADY GATE. REMAINS PAIN FREE WITH NO CURRENT REQUESTS.
--- NOTE | 2020-06-04 16:08 | NUR ---
Nutrition Followup Notes Pt wt is 66.0 kg Pt is positive for COVID, in isolation. Pt is with a CCHO 60g diet, appetite is fair aeb ave 63% x4 PO intake per RN doc. per notes, pt is with no s/s of distress or pain. Est energy needs BW 67 [id number] kcal (23-25 kcal/kg BW), Est protein needs 67-87g (1-1.3g/kg BW r/t severe hypoalb). Will monitor and reassess prn. LABS: GLUC 124 H, CA 8.2 L, ALB 2.2 L GI: Pt had 1 BM on 06/03 per RN doc BS: 22 low risk. Refer to wound assessment report for further details PES: Altered nutrition related lab values r.t current chronic medical condition aeb hyperglycemia, severe hypoalb Comments Will continue to monitor PO status, skin status, pertinent labs and weight trends. Will f/u in 2-3 days 1) Consider Prostat 1 packet daily 2) Refer to CDE on D/C 3) Continue current plan of care
[2020-06-04] MEDS: CHOLECALCIFEROL (VITD3) 2,000 UNIT CAP PO SCH (17:16)
--- NOTE | 2020-06-04 20:13 | NUR ---
STATUS PT SITTING UP IN BED AWAKE A&O, ON 8L OXYMIZER. PT REINSTRUCTED ON IS USE SHE WAS MISUSING ON DEMONSTRATION, VERBALIZED UNDERSTANDING. RESPIRATIONS EQUAL AND UNLABORED. WILL CONTINUE TO MONITOR
[2020-06-04] MEDS: ALBUTEROL SULF HFA 90MCG INH 200DOSE IN PRN (21:47)
[2020-06-04 22:00] VITALS: BP 142/73
[2020-06-05] MEDS: VANCOMYCIN 1GM/250ML 250 ML IV SCH ×3 (02:08→22:00)
--- NOTE | 2020-06-05 02:42 | NUR ---
VANCO INFILTRATION TO LEFT HAND PT CALLED STATION TO ALERT RN TO PAIN IN HAND. UPON ASSESSMENT IT WAS FOUND THAT THE VANCO HAD INFILTRATED THE SITE. IV REMOVED, ICE PACK PLACED AND EXTREMITY ELEVATED. SITE WAS FLUSHED PRIOR TO ADMINISTRATION. VANCO PLACED IN RIGHT FA LINE TO COMPLETE INFUSION. WILL MONITOR SITE.
--- NOTE | 2020-06-05 02:50 | NUR ---
TRUCKLOAD CHECKER IMELDA NOTIFIED OF INFILTRATION NO FURTHER RECOMMENDATIONS GIVEN
--- NOTE | 2020-06-05 03:21 | NUR ---
ASSUMED CARE OF PATIENT REPORT RECEIVED FROM DELVIN STRICKLAND. PATIENT CURRENTLY RESTING WITH EVEN RESPIRATIONS AND NO SIGNS OF DISTRESS NOTED AT THIS TIME. BED IN LOWEST POSITION WITH SIDERAILS UP X2 AND BED LOCKED WITH CALL LIGHT IN REACH.
--- NOTE | 2020-06-05 03:22 | NUR ---
REPORT GIVEN TO SRAVANI HARGROVE FOR CONTINUED POC
[2020-06-05] MEDS: SODIUM CHLOR 0.9% PF (SALINE LOCK) 10ML VIAL/SYR IV SCH ×3 (04:59→22:01)
[2020-06-05 05:00] VITALS: BP 143/97
[2020-06-05] MEDS: InsuLIN REG 1unit/0.01ml Soln (100units/ml) SC SCH ×4 (06:12→22:02)
[2020-06-05] MEDS: ACCU-CHEK COMFORT CURVE STRIP VI SCH ×4 (06:12→22:01)
[2020-06-05] MEDS: PIPERACILLIN-TAZOB 3.375GM 100 ML IV SCH ×5 (06:12→23:57)
--- NOTE | 2020-06-05 07:00 | NUR ---
Opening Shift Note Assumed care of patient, awake and alert. Patient on 8L of O2 via Oxymizer and saturating at 95%. Right forearm 18 G IV clean, dry, and patent with no signs of redness or swelling. No S/S of distress/SOB or pain. Instructed on POC and to call for assist PRN, will continue to monitor for changes Q1hr and PRN.
[2020-06-05] MEDS: BUDESONIDE (INHALATION) 180 MCG IH IN SCH (07:16)
[2020-06-05 08:38] LABS: Basophils # (auto) 0 10 ^3/uL (0-0.2); Lymphocytes # (auto) 0.5 10 ^3/uL (0.4-5.4); Monocytes # (auto) 0.4 10 ^3/uL (0-1.3); Red Cell Distribution Width 12.3 % (11.8-14.3)
[2020-06-05 08:40] LABS: Basophils % (auto) 0.4 % (0.0-2.0); Eosinophils # (auto) 0.1 10 ^3/uL (0-0.8); Hemoglobin 12.7 g/dL (12.2-16.2); Lymphocytes % (auto) 7.3 % (10.0-50.0); Mean Corpuscular Hgb Conc. 34.3 g/dL (32.0-36.0); Mean Corpuscular Volume 93.4 fL (80.0-100.0); Monocytes % (auto) 5.2 % (0.0-12.0); Neutrophils # (auto) 6.3 10 ^3/uL (1.6-8.6); Neutrophils % (auto) 85.1 % (37.0-80.0); Nucleated Red Blood Cells % 0.1 %; Platelet Count (auto) 433 10^3/uL (140-450); Red Blood Cells 3.97 10^6/uL (4.0-5.20); White Blood Cell 7.4 10^3/uL (4.4-10.8)
[2020-06-05 09:00] VITALS: BP 128/51
[2020-06-05 09:00] LABS: Calcium 8.7 mg/dL (8.5-10.1); Magnesium 2.3 mg/dL (1.6-2.6); Potassium 3.1 mmol/L (3.5-5.1)
[2020-06-05 09:10] LABS: BUN/Creatinine Ratio 16.7; CRP High Sensitivity 5.81 mg/dL (< 0.3)
--- NOTE | 2020-06-05 09:45 | NUR ---
DR. DEE AT BEDSIDE MD at bedside. Reviewed plan of care with patient. Addendum: 06/05/20 at 1311 by KRUPA ALTAMIRANO RN RN DR. DEE AT BEDSIDE [id number] MD at bedside. Reviewed plan of care with patient. Aware of patient status including low potassium. Per MD give 60 MEQ PO NOW. Orders read back and verified. Will carry out new orders and will continue to monitor.
[2020-06-05] MEDS ORDERED: POTASSIUM CHL 20 Meq TABLET PO ONE (10:00)
[2020-06-05] MEDS: ASCORBIC ACID 1,000 MG TAB PO SCH (10:20)
[2020-06-05] MEDS: ZINC SULFATE 220mg CAP or TAB PO SCH (10:20)
[2020-06-05] MEDS: DexAMETHasone SOD PHOS 10MG/1ML VIAL INJ IV SCH (10:21)
[2020-06-05] MEDS: ENOXAPARIN SOD 60 MG/0.6 ML SYRINGE SC SCH ×2 (10:21→22:01)
[2020-06-05] MEDS: CHOLECALCIFEROL (VITD3) 2,000 UNIT CAP PO SCH (10:21)
[2020-06-05] MEDS: FAMOTIDINE (10MG/ML) 2ML VL IV SCH ×2 (10:21→22:01)
--- NOTE | 2020-06-05 12:45 | NUR ---
DR. MUNIZ AT BESIDE MD at bedside. Reviewed plan of care with patient.
[2020-06-05 13:00] VITALS: BP 154/56
[2020-06-05] MEDS: ALBUTEROL SULF HFA 90MCG INH 200DOSE IN PRN (13:12)
--- NOTE | 2020-06-05 13:30 | NUR ---
Patient already ambulated today. Attempt P.T. evaluation tomorrow.
[2020-06-05 17:00] VITALS: BP 149/60
--- NOTE | 2020-06-05 19:30 | NUR ---
Opening Shift Note Received report from Iveth HARGROVE. Assumed care of patient, awake and alert. No S/S of distress/SOB or pain. Oxygen on 5LPM via nasal cannula sating 95%. Instructed on POC and to call for assist PRN. Fall precaution measures in place, will continue to monitor for changes Q1hr and PRN.
[2020-06-05 21:30] VITALS: BP 151/68
[2020-06-06 05:00] VITALS: BP 113/66
[2020-06-06] MEDS: PIPERACILLIN-TAZOB 3.375GM 100 ML IV SCH ×2 (06:00→12:04)
[2020-06-06] MEDS: SODIUM CHLOR 0.9% PF (SALINE LOCK) 10ML VIAL/SYR IV SCH ×2 (06:00→13:50)
[2020-06-06] MEDS: ACCU-CHEK COMFORT CURVE STRIP VI SCH ×3 (06:41→17:09)
[2020-06-06] MEDS: InsuLIN REG 1unit/0.01ml Soln (100units/ml) SC SCH ×3 (06:42→17:09)
[2020-06-06] MEDS: VANCOMYCIN 1GM/250ML 250 ML IV SCH (08:00)
[2020-06-06 08:20] LABS: CRP High Sensitivity 2.21 mg/dL (< 0.3)
--- NOTE | 2020-06-06 08:45 | NUR ---
Opening Shift Note Received report from overnight babysitter RN Yael, Assumed care of patient, awake and alert. Patient titrated down to 4L nasal cannula oxygen saturation at 95%, No S/S of distress/SOB or pain. Instructed on POC and to call for assist PRN, will continue to monitor for changes Q1hr and PRN. Bed in lowest position, call light within reach.
[2020-06-06 08:50] VITALS: BP 106/70
[2020-06-06] MEDS: FAMOTIDINE (10MG/ML) 2ML VL IV SCH (09:57)
[2020-06-06] MEDS: DexAMETHasone SOD PHOS 10MG/1ML VIAL INJ IV SCH (09:57)
[2020-06-06] MEDS: CHOLECALCIFEROL (VITD3) 2,000 UNIT CAP PO SCH (09:57)
[2020-06-06] MEDS: ENOXAPARIN SOD 60 MG/0.6 ML SYRINGE SC SCH (09:57)
[2020-06-06] MEDS: ASCORBIC ACID 1,000 MG TAB PO SCH (09:57)
[2020-06-06] MEDS: ZINC SULFATE 220mg CAP or TAB PO SCH (09:57)
--- NOTE | 2020-06-06 10:35 | NUR ---
Dr. Iqbal at bedside updating patient on plan of care.
--- NOTE | 2020-06-06 11:24 | NUR ---
PATIENT OXYGEN TITRATED TO 3 L, PATIENT OXYGEN SATURATION 98% WITH NO SIGNS OF DISTRESS/SOB. WILL TITRATE DOWN TO 2L AND WILL CONTINUE TO MONITOR.
--- NOTE | 2020-06-06 12:30 | NUR ---
PATIENT TITRATED DOWN TO 2L OXYGEN SATURATION 95%, NO SIGNS OF DISTRESS/ SOB. WILL CONTINUE TO MONITOR.
[2020-06-06 12:53] VITALS: BP 118/68
--- NOTE | 2020-06-06 15:30 | NUR ---
MD DEE AT BEDSIDE NEW ORDERS RECEIVED. PATIENT TO BE DISCHARGED.
--- NOTE | 2020-06-06 16:40 | NUR ---
SPOKE TO SYDNIE SYSTEMS ADMINISTRATION ANALYST PER SYDNIE PATIENT OKAY TO DISCHARGE DESPITE FINDING HOME HEALTH FOR SAFETY CHECK, HOME HEALTH WILL HAVE TO GO THROUGH PCP.
--- NOTE | 2020-06-06 16:42 | NUR ---
1640 06/06/20 - Contacted [facility] nurse outreach case manager Jenny at [phone] regarding finding home health agency. I have contacted numerous contracted home health agencies who have declined to accept patient due to the positive COVID diagnosis. Per Jenny she can schedule a tele medicine appointment with patient's PCP. Jenny stated she has had to do this with several other patients recently.
[2020-06-06 17:23] VITALS: BP 118/68
--- NOTE | 2020-06-06 18:41 | NUR ---
Discharge instructions given as ordered. Encourage to follow up with PMD as instructed. All questions and concerns addressed. Patient verbalized understanding. IV removed with catheter intact, pressure dressing applied. Telemetry unit returned to ICU. Patient taken to vehicle via wheelchair with all personal belongings, accompanied by security and RN. No distress noted at time of departure.
== END 2020-06-06 18:40 | disposition home or self-care (01) | DRG 871 ==
LOC: ER 14:47 → OVERFLOW 14:48 → TELE-EAST 05-29 22:50
PROVIDERS: ADMIT Hospitalist; ATTEND Internal Medicine
PROC: XW033E5 Introduction of Remdesivir Anti-infective into Peripheral Vein, Percutaneous Approach, New Technology Group 5 (ICD-10-PCS; 2020-05-28)
PROC: XW13325 Transfusion of Convalescent Plasma (Nonautologous) into Peripheral Vein, Percutaneous Approach, New Technology Group 5 (ICD-10-PCS; principal; 2020-06-03)
DX: A41.89 Other specified sepsis (principal); U07.1 COVID-19; J12.89 Other viral pneumonia; J96.01 Acute respiratory failure with hypoxia; J15.9 Unspecified bacterial pneumonia; E66.01 Morbid (severe) obesity due to excess calories; D64.9 Anemia, unspecified; E78.5 Hyperlipidemia, unspecified; E11.649 Type 2 diabetes mellitus with hypoglycemia without coma; R65.20 Severe sepsis without septic shock; Z79.4 Long term (current) use of insulin; Z68.26 Body mass index [BMI] 26.0-26.9, adult; Z90.49 Acquired absence of other specified parts of digestive tract; I10 Essential (primary) hypertension
CPT/HCPCS: 36415; 36600; 71045; 71275; 80048; 80053; 80061; 80202; 80307; 81001; 82565; 82728; 82805; 82962; 83036; 83605; 83615; 83735; 83880; 84443; 84484; 85025; 85379; 86141; 86850; 86900; 86901; 87040; 87086; 87426; 93005; 93970; 94640; 97163; G0378; J0696; J1100; J1815; J2001; J2543; J3490